=== PATIENT | female | born 1980 | race African-American/Black ===

== ENCOUNTER 2016-11-28 11:18 | Emergency (ER) | payer OTHER ==
[~2016-11-28] VITALS: Ht 166.4 cm; Wt 89.4 kg
[~2016-11-28 11:18] MED LIST: AMOXICILLIN500 MG PO; AMOXIL500 MG PO; AZITHROMYCIN250 MG PO; ENDOCET 325 MG-1 TA1 PO; ENGERIX-B20 MCG/ML IM; FIORICET 325 MG1 TAB PO; FLEXERIL10 MG PO; HYDROCODONE/ACE1 TA1 PO; LIDODERM 5% PAT1 PAT TOP; MOTRIN 600 MG600 MG PO; MOTRIN600 MG PO; NAPROXEN500 MG PO; NICOTINE14 MG/24 H TOP; PERCOCET 325 MG1 TA2 PO; PROVERA5 MG PO; VOLTAREN75 MG PO
[2016-11-28 11:23] VITALS: BP 129/85
--- NOTE | 2016-11-28 11:39 | ED ANKLE/FOOT INJURY COMPLAINT ---
History of Present Illness General Chief Complaint: Plantar Puncture Wound Stated Complaint: LFT TOE PAIN Source: patient Exam Limitations: no limitations Vital Signs & Intake/Output Vital Signs & Intake/Output ED Intake and Output 11/29 0000 11/28 1200 Intake Total 90 Output Total 100 Balance -10 Intake, Oral 90 Output, Urine 100 Patient 197 lb Weight Allergies Coded Allergies: NO KNOWN ALLERGIES (11/28/16) Reconcile Medications Naproxen (Naprosyn) 500 MG TABLET 1 TAB PO BID PRN pain Triage Note: TRIAGE: PT TO ER C/C PAIN TO L PINKY TOE S/P INJURY LAST NIGHT. STATES SHE HIT IT ON THE WALL WHILE "HORSEPLAYING" WITH HER SON. HAS ICED IT. REFUSES OFFERED PAIN MEDS AT TRIAGE. Triage Nurses Notes Reviewed? yes : No Patient currently breastfeeds: No HPI: This patient is a 36-year-old female who presented to the emergency department today for evaluation of left fifth digit pain to her foot. The patient reported that last night during the evening she was playing with her son and accidentally hit her foot into a wall. She reported that her toe was feeling sore at the time. The patient reported that when she got up this morning to walk around, she was unable to bear weight due to the pain. She reported the pain gets up to a 7 out of 10, is throbbing, and nonradiating. The pain has been constant since onset. She reported that she has been icing the area reported that she did not take any medication for the pain prior to arrival in the emergency department. The patient denied any ankle pain. She denied any numbness or tingling in her foot. Touching the area or walking makes the pain worse. She reported that the ice did seem to help. Past History Travel History Traveled to [place] past 21 day No Medical History Any Pertinent Medical History? 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 No Review of Systems Review of Systems Constitutional: Reports: no symptoms. EENTM: Reports: no symptoms. Respiratory: Reports: no symptoms. Cardiovascular: Reports: no symptoms. GI: Reports: no symptoms. Musculoskeletal: Reports: see HPI. Skin: Reports: no symptoms. Neurological/Psychological: Reports: no symptoms. All Other Systems: Reviewed and Negative Physical Exam Physical Exam Leg/Knee/Thigh Left: normal range of motion, normal inspection Comments: Well-developed well-nourished person in no acute distress HEENT: Normal EENT exam, head normocephalic, moist mucous membranes Pupils equally round and reactive to light. Neck: Supple Back: Antalgic gait Respiratory: No respiratory distress. Speaking in full sentences Left foot/ankle: Ecchymosis to the dorsum of the fifth digit with no surrounding erythema or edema. No signs of trauma or skin breakdown. Full range of motion at the ankle. Tenderness to palpation over the dorsal and lateral aspect of the fifth digit. Dorsalis pedis and posterior tibialis pulses 2+ and strong. Unable to assess capillary refill due to nail yoruba. Neuro: Alert oriented x3, cranial nerves II through XII grossly intact. Skin: No appreciable rash on exposed skin, skin is warm and dry. Psych: Mood and affect is normal Progress Differential Diagnosis: cellulitis, septic arthritis, gout, fracture, dislocation, sprain, contusion, compartmental syndrome Plan of Care: Orders Procedure Date/time Status Durable Medical Equipment 11/28 1301 Active URINE 11/28 1135 Complete Laboratory Tests 11/28/16 1140: Urine Test NEGATIVE Diagnostic Imaging: Viewed by Me: Radiology Read. Discussed w/RAD: Radiology Read. Radiology Impression: PATIENT: CHAN WITT PRESENT AGE: 36 PATIENT ACCOUNT NO: [id number] : 78 LOCATION: [facility] ORDERING PHYSICIAN: KYELR REED PA-C SERVICE DATE: 11/28/16-115 EXAM TYPE: RAD - XRY-FOOT COMPLETE, LEFT EXAMINATION: XR FOOT, LEFT CLINICAL INFORMATION: Pain after trauma. Evaluate for fracture of the fifth digit. COMPARISON: None TECHNIQUE: Left foot, 3 views FINDINGS: There is a nondisplaced oblique, intra- articular fracture at the base of the proximal phalanx of the fifth toe. Otherwise, bones of the foot are intact and have normal alignment. Incidentally noted is a multipartite configuration of the medial sesamoid of the great toe and a small plantar calcaneal enthesophyte. IMPRESSION: Nondisplaced, oblique intra-articular fracture at the base of the proximal phalanx of the fifth toe. DICTATED BY: MELA PACE MD DATE/TIME DICTATED:11/28/161244 CURRENCY MACHINE OPERATOR:JEREMY DATE/TIME TRANSCRIBED:11/28/161244 CONFIDENTIAL, DO NOT COPY WITHOUT APPROPRIATE AUTHORIZATION. <Electronically signed in Other Vendor System> SIGNED BY: MELA PACE MD 11/28/16 1251 Departure Departure Disposition: HOME OR SELF CARE Condition: Stable Clinical Impression Primary Impression: Closed fracture of toe, phalanx Qualifiers: Encounter type: initial encounter Toe: great toe Phalanx: proximal Fracture alignment: nondisplaced Laterality: left Qualified Code: S92.415A - Nondisplaced fracture of proximal phalanx of left great toe, initial encounter for closed fracture Referrals: CHUCKIE MARIE APRN (PCP/Family) ROSE STOUT,KENDRICK Additional Instructions: Please use the boot that was provided to here in the emergency department for stability of your foot. Please call to make a follow-up appointment with the orthopedic physician whose information has been provided in this packet. Elevate your foot and apply ice as needed. You may take [id number] Motrin or Tylenol for pain and inflammation. Return to the emergency department for any worsening symptoms or concerns. Departure Forms: Customer Survey General Discharge Information Prescriptions: Current Visit Scripts Naproxen (Naprosyn) 1 TAB PO BID PRN pain #20 TAB
--- NOTE | 2016-11-28 12:51 | RADIOLOGY REPORT ---
EXAMINATION: XR FOOT, LEFT CLINICAL INFORMATION: Pain after trauma. Evaluate for fracture of the fifth digit. COMPARISON: None TECHNIQUE: Left foot, 3 views FINDINGS: There is a nondisplaced oblique, intra-articular fracture at the base of the proximal phalanx of the fifth toe. Otherwise, bones of the foot are intact and have normal alignment. Incidentally noted is a multipartite configuration of the medial sesamoid of the great toe and a small plantar calcaneal enthesophyte. IMPRESSION: Nondisplaced, oblique intra-articular fracture at the base of the proximal phalanx of the fifth toe.
[2016-11-28] MEDS ORDERED: NAPROSYN500 M1 PO (13:22)
== END 2016-11-28 13:28 ==
LOC: ERH 11:18
DX: S92.515A Nondisplaced fracture of proximal phalanx of left lesser toe(s), initial encounter for closed fracture (principal); W22.01XA Walked into wall, initial encounter
CPT/HCPCS: 73630-LT; 81025

== ENCOUNTER 2016-12-18 14:09 | Emergency (ER) | payer OTHER ==
[~2016-12-18] VITALS: Ht 165.1 cm; Wt 89.8 kg
[~2016-12-18 14:09] MED LIST changes: +NAPROSYN500 M1 PO
--- NOTE | 2016-12-18 15:53 | ULTRASOUND REPORT ---
EXAMINATION: LEFT LOWER EXTREMITY VENOUS ULTRASOUND CLINICAL INFORMATION: Left leg edema pain and swelling COMPARISON: None. TECHNIQUE: Doppler spectral analysis and color flow Doppler imaging was performed of the left lower extremity. Compression and augmentation maneuvers were performed. FINDINGS: The left common femoral, femoral, popliteal and calf veins were well-identified and normal. They demonstrate normal compressibility and color fill-in. No Hale's cyst is seen. IMPRESSION: No evidence for left lower extremity deep vein thrombosis.
--- NOTE | 2016-12-18 16:02 | ED UPPER/LOWER EXTREMITY COMPL ---
History of Present Illness General Chief Complaint: Lower Extremity Problems Stated Complaint: LFT LEG SWELLING Source: patient Exam Limitations: no limitations Vital Signs & Intake/Output Vital Signs & Intake/Output Vital Signs Date Time Temp Pulse Resp B/P Pulse O2 O2 Flow FiO2 Ox Delivery Rate 12/18 1620 98.0 75 16 131/90 98 Room Air 12/18 1414 96.9 78 20 129/74 100 Room Air Room Air Allergies Coded Allergies: NO KNOWN ALLERGIES (11/28/16) Reconcile Medications Cyclobenzaprine HCl 10 MG TABLET 1 TAB PO TID SPASMS Meloxicam (Mobic) 15 MG TABLET 1 TAB PO DAILY PAIN Naproxen (Naprosyn) 500 MG TABLET 1 TAB PO BID PRN pain Triage Note: PT TO ED S/P "I BROKE MY LEFT TOE, IT'S OK NOW, BUT NOW STARTING LAST NIGHT MY LEFT MONTES AREA IS PAINFUL". Triage Nurses Notes Reviewed? yes Onset: Abrupt Duration: day(s):, constant, continues in ED Timing: recent history Severity: moderate, severe Pain/Injury Location: Left: Leg. No Modifying Factors: none : No Patient currently breastfeeds: No HPI: 36-year-old female comes into emergency room with left leg pain has been going on for the past few days. Denies any injury. Sharp throbbing pain. Pain is located behind her left knee and down into her calf. Denies any trauma that she is aware of. Denies any other associated symptoms. (AARON PARIS) Past History Travel History Traveled to [place] past 21 day No Medical History Any Pertinent Medical History? 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 No (AARON PARIS) Review of Systems Review of Systems Constitutional: Reports: no symptoms. EENTM: Reports: no symptoms. Respiratory: Reports: no symptoms. Cardiovascular: Reports: no symptoms. Gastrointestinal/Abdominal: Reports: no symptoms. Genitourinary: Reports: no symptoms. Musculoskeletal: Reports: see HPI. Skin: Reports: no symptoms. Neurological/Psychological: Reports: no symptoms. Hematologic/Endocrine: Reports: no symptoms. Immunological: Reports: no symptoms. All Other Systems: Reviewed and Negative (AARON PARIS) Physical Exam Physical Exam General Appearance: well developed/nourished, mild distress Head: atraumatic Eyes: Bilateral: normal appearance. Ears, Nose, Throat: normal ENT inspection, hearing grossly normal Neck: normal inspection Cardiovascular/Respiratory: regular rate/rhythm, no respiratory distress Back: normal inspection Leg Left: normal range of motion, normal inspection, soft tissue tenderness Neurologic/Tendon: normal sensation, normal motor functions, normal tendon functions, responds to pain, no evidence tendon injury, no pulse deficit Skin: intact, normal color, warm/dry Lymphatic: no anterior cervical conchita (AARON PARIS) Progress Differential Diagnosis: dislocation, DVT, fracture, gout, septic arthritis, sprain, tendon injury Plan of Care: Orders Procedure Date/time Status [id number], LEFT 12/18 1454 Active Diagnostic Imaging: Viewed by Me: Radiology Read, CT Scan. Discussed w/RAD: Radiology Read, CT Scan. Radiology Impression: EXAM TYPE: RAD - [id number], LEFT EXAMINATION: XR TIBIA AND FIBULA, LEFT CLINICAL INFORMATION: Proximal fibular pain and swelling. COMPARISON: None TECHNIQUE: AP and lateral views of the left tibia and fibula were obtained. FINDINGS: No acute fracture or cortical disruption. Alignment is anatomic at the knee and ankle. The soft tissues are unremarkable. IMPRESSION: Normal left tibia and fibula. DICTATED BY: LUIS EDUARDO STOUT,RANJAN DATE/TIME DICTATED:12/18/161604 CHILD CENTER ASSISTANT:JEREMY DATE/TIME TRANSCRIBED:1604, SERVICE DATE: 12/18/16 EXAM TYPE: US - US-DUPLEX VENOUS EXTREM UNI EXAMINATION: LEFT LOWER EXTREMITY VENOUS ULTRASOUND CLINICAL INFORMATION: Left leg edema pain and swelling COMPARISON: None. TECHNIQUE: Doppler spectral analysis and color flow Doppler imaging was performed of the left lower extremity. Compression and augmentation maneuvers were performed. FINDINGS: The left common femoral, femoral, popliteal and calf veins were well-identified and normal. They demonstrate normal compressibility and color fill-in. No Hale's cyst is seen. IMPRESSION: No evidence for left lower extremity deep vein thrombosis. DICTATED BY: TYLER ELIZONDO MD DATE/TIME DICTATED:12/18/161548 CHILD CENTER ASSISTANT:JEREMY DATE/TIME TRANSCRIBED:12/18/161548 (AARON PARIS) Departure Departure Disposition: HOME OR SELF CARE Condition: Stable Clinical Impression Primary Impression: Muscle strain of left lower leg Referrals: CHUCKIE MARIE APRN (PCP/Family) Additional Instructions: Take Flexeril and Mobic as prescribed. Follow-up with your primary care doctor. Return if any concerns worsening symptoms. Please go over all results of today's visit with your primary care doctor. Contact your primary care doctor to let them know you were here in the emergency room. There may be nonspecific findings which may not be related to your visit today here in the emergency room but may require further evaluation and chronic monitoring by your primary care doctor. If you had a laceration today the chance of foreign body always remains. You should follow-up with your primary care doctor for recheck in 3-5 days for a wound check. If you had an x-ray done there is a chance that a fracture could have been missed on initial read and you should follow-up with your primary care doctor for repeat x-rays if symptoms persist. If your blood pressure was elevated here in the emergency room please have rechecked by her primary care doctor within the next 48 hours by your primary care doctor. If you were prescribed a narcotic here in the emergency room or any type of controlled substances you're not allowed to drive while taking this medication or operate any type of heavy machinery. Narcotics can make you feel lightheaded dizziness nausea and can cause constipation. You may need to molded goods spot picker a stool softener. Thank you for choosing [facility] emergency room. Please return to the emergency room immediately if you have any other concerns worsening of symptoms. Departure Forms: Customer Survey General Discharge Information Prescriptions: Current Visit Scripts Cyclobenzaprine HCl 1 TAB PO TID #20 TAB Meloxicam (Mobic) 1 TAB PO DAILY #10 TAB Comments 12/18/2016 5:59:42 PM Patient clinically looks well. No evidence of DVT. No evidence of fracture. (AARON PARIS) PA/PATHOLOGIST Co-Sign Statement Statement: ED Attending supervision documentation- [] I saw and evaluated the patient. I have also reviewed all the pertinent lab results and diagnostic results. I agree with the findings and the plan of care as documented in the PA's/PATHOLOGIST's documentation. [x] I have reviewed the ED Record and agree with the PA's/PATHOLOGIST's documentation. [] Additions or exceptions (if any) to the PAs/PATHOLOGIST's note and plan are summarized below: [] (AMARI COX DO
--- NOTE | 2016-12-18 16:10 | RADIOLOGY REPORT ---
EXAMINATION: XR TIBIA AND FIBULA, LEFT CLINICAL INFORMATION: Proximal fibular pain and swelling. COMPARISON: None TECHNIQUE: AP and lateral views of the left tibia and fibula were obtained. FINDINGS: No acute fracture or cortical disruption. Alignment is anatomic at the knee and ankle. The soft tissues are unremarkable. IMPRESSION: Normal left tibia and fibula.
[2016-12-18] MEDS ORDERED: MOBIC15 M1 PO (16:18)
[2016-12-18] MEDS ORDERED: CYCLOBENZAPRINE10 M1 PO (16:18)
[2016-12-18 16:20] VITALS: BP 131/90
== END 2016-12-18 16:41 ==
LOC: ERH 14:09
DX: S86.812A Strain of other muscle(s) and tendon(s) at lower leg level, left leg, initial encounter (principal); X58.XXXA Exposure to other specified factors, initial encounter
CPT/HCPCS: 73590-LT

== ENCOUNTER 2018-02-02 23:19 | Emergency (ER) | payer OTHER ==
[~2018-02-02 23:19] MED LIST changes: +ACULAR5 ML OPH; +CYCLOBENZAPRINE10 M1 PO; +HYDROCODON-ACE1 EAC2 PO; +IBUPROFEN600 M1 PO; +IMITREX25 M1 PO; +MOBIC15 M1 PO; +POLYTRIM EYE DR10 ML OPH; +TRAMADOL HCL50 M1 PO; +ZANAFLEX2 M2 PO; +ZOFRAN ODT4 M1 PO
[2018-02-02 23:25] VITALS: BP 142/98
[2018-02-02] MEDS ORDERED: PERCOCET 5-3251 EACH PO (23:36)
--- NOTE | 2018-02-02 23:38 | ED UPPER/LOWER EXTREMITY COMPL ---
History of Present Illness General Chief Complaint: Lower Extremity Problems Stated Complaint: LT LEG PAIN 08/24 SEEN HERE 01/25/18 MFOR SAME Source: patient Exam Limitations: no limitations Vital Signs & Intake/Output Vital Signs & Intake/Output Vital Signs Date Time Temp Pulse Resp B/P B/P Pulse O2 O2 Flow FiO2 Mean Ox Delivery Rate 02/02 2325 97.4 84 16 142/98 97 Room Air Allergies Coded Allergies: No Known Allergies (05/24/17) Reconcile Medications Hydrocodone/Acetaminophen (Hydrocodon-Acetaminophen 5-325) 5 MG-325 MG TABLET 1-2 TAB PO Q4-6 PRN PRN PAIN Meloxicam (Mobic) 15 MG TABLET 1 TAB PO DAILY pain Meloxicam (Mobic) 15 MG TABLET 1 TAB PO DAILY PAIN Oxycodone HCl/Acetaminophen (Percocet 5-325 MG Tablet) 5 MG-325 MG TABLET 1-2 TAB PO BID pain Triage Note: PT TO ED WITH ATRAUMATIC LEFT KNEE PAIN X 3 WEEKS. SEEN FOR SAME 2 WEEKS AGO AND HAD ULTRASOUND AND XRAY. U/S SHOWED BAKERS CYST. TAKING MELOXICAM AND MOTRIN W/O RELIEF Triage Nurses Notes Reviewed? yes Onset: Abrupt Duration: day(s):, constant Timing: recent history Severity: moderate, severe Pain/Injury Location: Left: Knee. : No Patient currently breastfeeds: No HPI: 37-year-old female comes into emergency room for further evaluation of left knee pain. Symptoms have been going on for the past couple weeks. Patient was seen here in the. She had an x-ray done. She then had an outpatient ultrasound which showed a Hale cyst. Has had some increased swelling to the knee over last day or so. She had increased pain while working tonight. Denies any redness swelling discharge fever chills. Denies any new trauma. Denies any other associated symptoms. There was no DVT seen on the ultrasound the other day. (Pacheco Schneider) Past History Travel History Traveled to [place] past 21 day No Medical History Any Pertinent Medical History? 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 No (Pacheco Schneider) Review of Systems Review of Systems Constitutional: Reports: no symptoms. EENTM: Reports: no symptoms. Respiratory: Reports: no symptoms. Cardiovascular: Reports: no symptoms. Gastrointestinal/Abdominal: Reports: no symptoms. Genitourinary: Reports: no symptoms. Musculoskeletal: Reports: see HPI. Skin: Reports: no symptoms. Neurological/Psychological: Reports: no symptoms. Hematologic/Endocrine: Reports: no symptoms. Immunological: Reports: no symptoms. All Other Systems: Reviewed and Negative (Pacheco Schneider) Physical Exam Physical Exam General Appearance: well developed/nourished, mild distress Head: atraumatic Eyes: Bilateral: normal appearance. Ears, Nose, Throat: normal ENT inspection, hearing grossly normal Neck: normal inspection Cardiovascular/Respiratory: no respiratory distress Back: normal inspection Knee Left: joint effusion, soft tissue tenderness, limited range of motion, no warmth, no erythema Neurologic/Tendon: normal sensation, normal motor functions, normal tendon functions, responds to pain, no evidence tendon injury, no pulse deficit Skin: intact, normal color, warm/dry (Pacheco Schneider) Progress Differential Diagnosis: contusion, DVT, fracture, sprain, bakers cyst Plan of Care: 02/02/2018 11:43:15 PM Patient had a normal ultrasound the other day. There was no evidence of DVT. She had a Hale's cyst. There is no current signs of infection. She needs follow-up with orthopedic doctor. Ice. Rest. Ibuprofen. Percocet as needed for pain. Return if any other concerns. She understands and agrees plan of care. (Pacheco Schneider) Departure Departure Disposition: HOME OR SELF CARE Condition: Stable Clinical Impression Primary Impression: Synovial cyst of popliteal space [Hale], left knee Secondary Impressions: Knee pain, left Referrals: Theresa Meléndez APRN (PCP/Family) Paulo Aj MD Additional Instructions: Ice. Rest. Continue taken meloxicam. Take Percocet as needed for pain. Follow-up with orthopedic doctor. Return if any other concerns worsening symptoms. Compression wrap. Please go over all results of today's visit with your primary care doctor. Contact your primary care doctor to let them know you were here in the emergency room. There may be nonspecific findings which may not be related to your visit today here in the emergency room but may require further evaluation and chronic monitoring by your primary care doctor. If you had a laceration today the chance of foreign body always remains. You should follow-up with your primary care doctor for recheck in 3-5 days for a wound check. If you had an x-ray done there is a chance that a fracture could have been missed on initial read and you should follow-up with your primary care doctor for repeat x-rays if symptoms persist. If your blood pressure was elevated here in the emergency room please have rechecked by gina primary care doctor within the next 48. If you were prescribed a narcotic here in the emergency room or any type of controlled substances you're not allowed to drive while taking this medication or operate any type of heavy machinery. Narcotics can make you feel lightheaded dizziness nausea and can cause constipation. You may need to waste picker a stool softener. Thank you for choosing [facility] emergency room. Please return to the emergency room immediately if you have any other concerns worsening of symptoms. Departure Forms: Customer Survey General Discharge Information Prescriptions: Current Visit Scripts Oxycodone HCl/Acetaminophen (Percocet 5-325 MG Tablet) 1-2 TAB PO BID #15 TAB (Pacheco Schneider) PA/TURNING MACHINE OPERATOR HELPER Co-Sign Statement Statement: ED Attending supervision documentation- I saw and evaluated the patient. I have also reviewed all the pertinent lab results and diagnostic results. I agree with the findings and the plan of care as documented in the PA's/TURNING MACHINE OPERATOR HELPER's documentation. x I have reviewed the ED Record and agree with the PA's/TURNING MACHINE OPERATOR HELPER's documentation. [] Additions or exceptions (if any) to the PAs/TURNING MACHINE OPERATOR HELPER's note and plan are summarized below: [] (Elsa STOUT,Anand)
== END 2018-02-02 23:43 ==
LOC: ERH 23:19
DX: M71.22 Synovial cyst of popliteal space [Baker], left knee (principal)